=== PATIENT | male | born 2000 | race Caucasian/White ===

== ENCOUNTER 2021-03-17 18:07 | Emergency (ER) | payer OTHER ==
[~2021-03-17] VITALS: Ht 177.8 cm; Wt 86.2 kg
[2021-03-17] MEDS ORDERED: VENTOLIN HFA18 GM INH (20:45)
== END 2021-03-17 22:27 | disposition home or self-care (01) ==
LOC: ED 18:07
DX: S61.412A Laceration without foreign body of left hand, initial encounter (principal); Z23 Encounter for immunization; W26.0XXA Contact with knife, initial encounter
CPT/HCPCS: 12002; 90471; 90715; 99282-25